=== PATIENT | female | born 1970 | race Caucasian/White ===

== ENCOUNTER 2017-08-29 10:40 | Emergency (ER) | payer OTHER, MEDICAID ==
[~2017-08-29] VITALS: Ht 152.4 cm; Wt 80.7 kg
[2017-08-29 10:54] VITALS: Ht 152.4 cm; Wt 80.7 kg
[2017-08-29 12:53] LABS: BASOPHIL % 0.3 % (0-2); PLATELET COUNT 305 x10^3mcL (130-400)
[2017-08-29 12:56] LABS: RED CELL DISTRIBUTION WIDTH 14.6 % (11.5-14.5)
[2017-08-29 13:08] LABS: CALCIUM 8.8 mg/dL (8.5-10.1); CARBON DIOXIDE 26.3 mmol/L (21-32); CHLORIDE SERUM 104 mmol/L (98-107); CREATININE SERUM 0.6 mg/dL (0.6-1.0); GFR1 > 60 mL/min; GLUCOSE SERUM 118 mg/dL (74-106); POTASSIUM SERUM 3.4 mmol/L (3.5-5.1); SODIUM SERUM 141 mmol/L (136-145)
[2017-08-29 13:12] LABS: ALBUMIN 3.6 g/dL (3.4-5.0); ALKALINE PHOSPHATASE 101 U/L (46-116); ALT/SGPT 37 U/L (14-59); AST/SGOT 24 U/L (15-37); BILIRUBIN TOTAL 0.77 mg/dL (0.20-1.00); TOTAL PROTEIN, SERUM 7.8 g/dL (6.4-8.2)
[2017-08-29 14:00] VITALS: BP 122/81
== END 2017-08-29 14:00 | disposition home or self-care (01) ==
LOC: ED 10:40
PROVIDERS: Specialist
DX: B36.8 Other specified superficial mycoses (principal); E78.00 Pure hypercholesterolemia, unspecified
CPT/HCPCS: 87491; 87591; J0696; J2001

== ENCOUNTER 2020-03-28 12:00 | Emergency (ER) | payer MEDICAID ==
[~2020-03-28] VITALS: Ht 157.5 cm; Wt 91.2 kg
[2020-03-28 12:14] VITALS: Ht 157.5 cm; Wt 91.2 kg
[2020-03-28 14:32] VITALS: BP 117/80
== END 2020-03-28 14:32 | disposition home or self-care (01) ==
LOC: ED 12:00
DX: N72 Inflammatory disease of cervix uteri (principal); N39.0 Urinary tract infection, site not specified; J45.909 Unspecified asthma, uncomplicated; E78.00 Pure hypercholesterolemia, unspecified; E03.9 Hypothyroidism, unspecified
CPT/HCPCS: 87491; 87591; J0696; Q0092